=== PATIENT | male | born 1955 | race Caucasian/White ===

== ENCOUNTER 2020-07-21 17:00 | Emergency (ER) | payer MEDICARE ==
[2020-07-21] MEDS ORDERED: KETOROLAC 30MG VIAL (30MG/ML) ONE (17:34)
== END 2020-07-21 18:10 | disposition home or self-care (01) ==
LOC: EDH 17:00
DX: M19.011 Primary osteoarthritis, right shoulder (principal); E11.9 Type 2 diabetes mellitus without complications; E78.00 Pure hypercholesterolemia, unspecified; Z87.891 Personal history of nicotine dependence; Z88.2 Allergy status to sulfonamides
CPT/HCPCS: 73030; 96372; 99283; J1885